=== PATIENT | male | born 1930 | race Caucasian/White ===

== ENCOUNTER 2016-06-14 10:40 | Emergency (ER) | payer OTHER ==
[~2016-06-14 10:40] MED LIST: ASPI81TA21 PO; CALC.25 PO; DOCU1CAP39 PO; DRIS50002 PO; ISOS60 PO; LABE200 PO; LISI5 PO; POLY119S PO; SPIR25 PO; TORS20TA PO; ULTR50TA PO; WARF2TAB PO
[2016-06-14 10:49] VITALS: BP 128/68; PULSE 80; RESP 17; TEMP 98.2; O2SAT 98
[2016-06-14] MEDS ORDERED: TETANUS/DIPHTHERIA TOXOID ADULT 0.5 ML VIAL IM ONE (14:15)
[2016-06-14 14:25] VITALS: BP 122/77; PULSE 78; RESP 18; TEMP 98.1; O2SAT 97
--- NOTE | 2016-06-14 14:28 | PD ---
HPI Chief Complaint: Skin Problem Time Seen by Provider: 14:20 Travel History International Travel<30 days: No Contact w/Intl Traveler<30days: No Traveled to known affect area: No History of Present Illness HPI 86-year-old male that presents to the ED for evaluation of fall. Patient came by ambulance for evaluation of this. Patient and who witnessed the fall report the patient had a fall from bed. Patient apparent rollover from bed and hit his head. He did not loss consciousness. Patient complaining of pain to his head initially but states that now he is pain-free. He does have a history of chronic pain secondary to arthritis and he usually is able to ambulate with a walker but apparently today during the night he had a bad dream and imaging rollover from bed. Patient does take Coumadin. [facility] for evaluation of the fall but the recommended that he comes here to get evaluated because he takes Coumadin. Per patient his last Coumadin level was checked 2 weeks ago and was 2.3. Patient complains of abrasions to the right arm as well as to the right ear. Patient states compliance with Coumadin which she takes for atrial fibrillation. He has a history of severe CHF. Also history CKD, heart disease and severe arthritis. Borderline diabetic with diet control. He denies any pain of any kind. Per patient was able to ambulate with his walker which is usual for him. No new deficits noted per . Patient talking and answering questions appropriately. Moving all extremities see no sign of acute distress. No back or neck pain reported. PFSH Past Medical History Hx Anticoagulant Therapy: Yes (coumadin) Atrial Fibrillation: Yes Blood Disorders: No Heart Rhythm Problems: Yes (A-Fib) Cancer: No Cardiac Catheterization: Yes (X 2) Cardiovascular Problems: Yes (CAD) Chest Pain: No Congestive Heart Failure: Yes Cerebrovascular Accident: Yes (2005 CVA) Coronary Artery Disease: Yes Diabetes: Yes Patient Takes Glucophage: No Diminished Hearing: Yes Endocrine: Yes Glaucoma: Yes Genitourinary: Yes (CKD) Hypertension: Yes Immune Disorder: No Neurologic: No Psychiatric: No Respiratory: No Integumentary: Yes Immunizations Current: Yes Tetanus Vaccination: < 5 Years Past Surgical History Tonsillectomy: Yes Social History Alcohol Use: No Tobacco Use: No Substance Use: No Allergies-Medications (Allergen,Severity, Reaction): Coded Allergies: HMG-CoA Reductase Inhibitors (Verified Allergy, Intermediate, LEG CRAMPS, 10/06/15) Minoxidil (Verified Allergy, Intermediate, Swelling, 10/06/15) Sulfa (Verified Allergy, Intermediate, Swelling, 10/06/15) Reported Meds & Prescriptions Reported Meds & Active Scripts Active Bactroban Topical (Mupirocin) 2% Oint 1 Appl TOPICAL BID 14 Days Reported Warfarin 2 Mg Tab 2 Mg PO HS Tramadol (Tramadol HCl) 50 Mg Tab 50-100 Mg PO Q6H PRN Torsemide 20 Mg Tab 20 Mg PO DAILY Aldactone (Spironolactone) 25 Mg Tab 25 Mg PO BID Miralax Powder (Polyethylene Glycol 3350 Powder) 17 Gm Powd 17 Gm PO DAILY PRN Mix and dissolve one measuring capful (17 grams) in water or juice. Labetalol (Labetalol HCl) 200 Mg Tab 200 Mg PO TID Tylenol (Acetaminophen) 325 Mg Tab 325 Mg PO TID Isosorbide Mononitrate ER (Isosorbide Mononitrate) 60 Mg Tab 60 Mg PO BID Drisdol (Ergocalciferol) 50,000 Unit Cap 50,000 Units PO WEEKLY Colace (Docusate Sodium) 100 Mg Cap 100 Mg PO HS Rocaltrol (Calcitriol) 0.25 Mcg Cap 0.25 Mcg PO DAILY Aspirin Adult Low Strength (Aspirin) 81 Mg Tabdr 81 Mg PO HS Review of Systems Except as stated in HPI: all other systems reviewed are Neg Physical Exam Narrative GENERAL: SKIN: Warm and dry. Patient has a small superficial skin avulsion to the right ear as well as to the posterior aspect of the ear. Both are less than half a centimeter in diameter. Patient does have a linear skin tear/avulsion which is very superficial on the right arm which is about 6 cm in length and less than half a centimeter in width. Some bleeding noted. No sign of foreign body or other deformity. Patient does have bruising noted on the most inferior aspect of the right ear. HEAD: Atraumatic. Normocephalic. EYES: Pupils equal and round 4 mm reactive to light and accommodation. No scleral icterus. No injection or drainage. ENT: No nasal bleeding or discharge. Mucous membranes pink and moist. Tongue is midline. No uvula deviation. NECK: Trachea midline. No JVD. CARDIOVASCULAR: Regular rate and rhythm. No murmurs, S3, S4. RESPIRATORY: No accessory muscle use. Clear to auscultation. Breath sounds equal bilaterally. GASTROINTESTINAL: Abdomen soft, non-tender, nondistended. Hepatic and splenic margins not palpable. MUSCULOSKELETAL: Extremities without clubbing, cyanosis, or edema. No obvious deformities. Full range of motion of the upper and lower extremities bilaterally. 2+ pulses bilaterally. No lumbar, thoracic, cervical spine tenderness to palpation. NEUROLOGICAL: Awake and alert. No obvious cranial nerve deficits. Motor grossly within normal limits. Five out of 5 muscle strength in the arms and legs. Normal speech. PSYCHIATRIC: Appropriate mood and affect; insight and judgment normal. Data Data Last Documented VS Vital Signs Date Time Temp Pulse Resp B/P Pulse Ox O2 Delivery O2 Flow Rate FiO2 06/14/16 10:49 98.2 80 17 128/68 98 Orders Complete Blood Count With Diff (06/14/16 14:02) Prothrombin Time / Inr (Pt) (06/14/16 14:02) Act Partial Throm Time (Ptt) (06/14/16 14:02) Chest, Single Ap (06/14/16 14:02) Ct Brain W/O Iv Contrast(Rout) (06/14/16 14:02) Iv Access Insert/Monitor (06/14/16 14:02) Ct Cerv Spine W/O Contrast (06/14/16 14:02) Wound Care (06/14/16 14:02) Tetanus/Diphtheria Tox Adult (Tetanus/Di (06/14/16 14:15) Labs Laboratory Tests Test 06/14/16 14:35 White Blood Count 8.0 TH/MM3 Red Blood Count 4.45 MIL/MM3 Hemoglobin 13.9 GM/DL Hematocrit 42.5 % Mean Corpuscular Volume 95.7 FL Mean Corpuscular Hemoglobin 31.4 PG Mean Corpuscular Hemoglobin 32.8 % Concent Red Cell Distribution Width 14.6 % Platelet Count 173 TH/MM3 Mean Platelet Volume 9.5 FL Neutrophils (%) (Auto) 73.8 % Lymphocytes (%) (Auto) 15.1 % Monocytes (%) (Auto) 8.0 % Eosinophils (%) (Auto) 2.6 % Basophils (%) (Auto) 0.5 % Neutrophils # (Auto) 5.9 TH/MM3 Lymphocytes # (Auto) 1.2 TH/MM3 Monocytes # (Auto) 0.6 TH/MM3 Eosinophils # (Auto) 0.2 TH/MM3 Basophils # (Auto) 0.0 TH/MM3 CBC Comment DIFF FINAL Differential Comment Prothrombin Time 25.8 SEC Prothromb Time International 2.3 RATIO Ratio Activated Partial 36.7 SEC Thromboplast Time MDM Medical Decision Making Medical Screen Exam Complete: Yes Emergency Medical Condition: Yes Medical Record Reviewed: Yes Interpretation(s) CBC Diagram 06/14/16 14:35 Coags elevated with INR of 2.3 CT head negative for acute disease CT cervical spine showed DJD but no acute disease Last Impressions Chest X-Ray 06/14/16 1402 Signed Impressions: Service Date/Time: Tuesday, June 14, 2016 14:13 - CONCLUSION: 1. No acute cardiopulmonary disease. 2. Cardiomegaly. 3. Chronic interstitial changes. Jairo Joseph Jr., MD Differential Diagnosis Fall versus head injury versus bleed versus ICH versus contusion versus abrasion versus laceration Narrative Course 86-year-old male that presents to the ED for evaluation of fall from bed. Patient was properly examined and was found to have signs and symptoms concerning for head bleed. [facility] At this time I recommend CBC, coags, CTs and wound care as well as tetanus booster as he is not sure of his last tetanus shot. He is in agreement with this plan. is present at the bedside and collaborates this story. This was a mechanical fall and no syncope. Labs and imaging ordered. Labs and imaging showed no sign of acute disease.. Patient was reassured. Patient was told that his Coumadin level is 2.3 which is stable for him. Recommendation is for wound care. Patient will be given a prescription for Bactroban. Told to follow with PCP. See ED for worsening symptoms. Change dressings daily. Ice or warm compresses as needed. Diagnosis Primary Impression: Head injury Qualified Code: S09.90XA - Head injury, initial encounter Additional Impressions: Skin abrasion Contusion Qualified Code: S00.431A - Contusion of right ear, initial encounter Patient Instructions: General Instructions Additional Instructions: Tylenol for pain as needed. Ice or warm compresses as needed. Wound changes at least once a day. Apply antibiotic ointment as prescribed. See ED for any worsening symptoms. Follow up with PCP. Med/Other Pt SpecificInfo: Prescription(s) given Scripts Mupirocin Topical (Bactroban Topical)2% Oint1 Appl TOPICAL BID 14 Days Prov:Paco Owen MD 06/14/16 Disposition: 01 DISCHARGE HOME Condition: Stable Wesley Wiley Jun 14, 2016 14:28
[2016-06-14] MEDS ORDERED: WARF4TAB51 PO (14:37)
[2016-06-14] MEDS ORDERED: ASPI1TAB91 PO (14:37)
[2016-06-14] MEDS ORDERED: ISOS60TA PO (14:37)
[2016-06-14] MEDS ORDERED: TYLE325T PO (14:37)
[2016-06-14] MEDS ORDERED: TORS20TA PO (14:37)
[2016-06-14] MEDS ORDERED: CALC.25 PO (14:37)
[2016-06-14] MEDS ORDERED: DRIS50002 PO (14:37)
[2016-06-14] MEDS ORDERED: MIRA33504 PO (14:37)
[2016-06-14] MEDS ORDERED: SPIR25 PO (14:37)
[2016-06-14] MEDS ORDERED: TRAM50TA PO (14:37)
[2016-06-14] MEDS ORDERED: COLA100C3 PO (14:37)
[2016-06-14] MEDS ORDERED: LABE200T2 PO (14:37)
[2016-06-14 15:03] LABS: AUTOMATED NEUTROPHIL # 5.9 TH/MM3 (1.8-7.7); BASOPHIL % 0.5 % (0.0-2.0); EOSINOPHIL # 0.2 TH/MM3 (0-0.4); EOSINOPHIL % 2.6 % (0.0-4.0); HEMATOCRIT 42.5 % (39.0-51.0); HEMO FLAGS DIFF FINAL; LYMPH % 15.1 % (9.0-44.0); LYMPHOCYTE # 1.2 TH/MM3 (1.0-4.8); MEAN CELL VOLUME 95.7 FL (80.0-100.0); MEAN CORPUSCULAR HEMOGLOBIN 31.4 PG (27.0-34.0); MEAN CORPUSCULAR HGB CONC 32.8 % (32.0-36.0); NEUT % 73.8 % (16.0-70.0); PLATELET COUNT 173 TH/MM3 (150-450); RED BLOOD COUNT 4.45 MIL/MM3 (4.50-5.90); RED CELL DISTRIBUTION WIDTH 14.6 % (11.6-17.2)
[2016-06-14 15:18] LABS: APTT (PATIENT) 36.7 SEC (24.3-30.1); INTERNATIONAL NORMALIZED RATIO 2.3 RATIO; PROTHROMBIN TIME - PATIENT 25.8 SEC (9.8-11.6)
[2016-06-14] MEDS ORDERED: BACT2OIN TOPICAL (15:21)
--- NOTE | 2016-06-14 15:52 | RADRPT ---
EXAM DATE/TIME: 06/14/2016 14:13 [facility] COMPARISON: CHEST SINGLE AP, October 06, 2015, 15:24. INDICATIONS : Patient fell this morning. MEDICAL HISTORY : Congestive heart failure. SURGICAL HISTORY : None. ENCOUNTER: Initial ACUITY: 1 day PAIN SCORE: 0/10 LOCATION: Bilateral chest FINDINGS: A single portable frontal view the chest shows mild cardiomegaly. Mild chronic interstitial changes. No acute infiltrate or effusion. The scoliotic and degenerative thoracic spine. CONCLUSION: 1. No acute cardiopulmonary disease. 2. Cardiomegaly. 3. Chronic interstitial changes. Jairo Joseph Jr., MD on June 14, 2016 at 15:48 Board Certified Radiologist. This report was verified electronically.
--- NOTE | 2016-06-14 16:05 | RADRPT ---
EXAM DATE/TIME: 06/14/2016 14:54 [facility] COMPARISON: No previous studies available for comparison. INDICATIONS : Fell out of bed today hit head on dresser laceration right side of head and right arm RADIATION DOSE: 36.84 CTDIvol (mGy) MEDICAL HISTORY : Cardiovascular disease. Diabetes mellitus type 2. Cerebrovascular disease. SURGICAL HISTORY : Tonsillectomy. ENCOUNTER: Initial ACUITY: 1 day PAIN SCALE: 5/10 LOCATION: cranial TECHNIQUE: Multiple contiguous axial images were obtained of the head. Using automated exposure control and adj ustment of the mA and/or kV according to patient size, radiation dose was kept as low as reasonably a chievable to obtain optimal diagnostic quality images. FINDINGS: CEREBRUM: The ventricles are normal for age. No evidence of midline shift, mass lesion, hemorrhage or acute in farction. No extra-axial fluid collections are seen. POSTERIOR FOSSA: The cerebellum and brainstem are intact. The 4th ventricle is midline. The cerebellopontine angle i s unremarkable. EXTRACRANIAL: The visualized portion of the orbits is intact. SKULL: The calvaria is intact. No evidence of skull fracture. CONCLUSION: No acute intracranial findings. Shay Cervantes MD on June 14, 2016 at 15:55 Board Certified Radiologist. This report was verified electronically.
--- NOTE | 2016-06-14 16:09 | RADRPT ---
EXAM DATE/TIME: 06/14/2016 14:54 [facility] COMPARISON: No previous studies available for comparison. INDICATIONS : Fell off bed hit head on dresser laceration to right side of head and rt arm RADIATION DOSE: 21.20 CTDIvol (mGy) MEDICAL HISTORY : Hypertension. Diabetes mellitus type 2. Cerebrovascular disease. SURGICAL HISTORY : None. ENCOUNTER: Initial ACUITY: 1 day PAIN SCALE: 5/10 LOCATION: neck TECHNIQUE: Volumetric scanning of the cervical spine was performed. Multiplanar reconstructions in the sagittal, coronal and oblique axial planes were performed. Using automated exposure control and adjustment o f the mA and/or kV according to patient size, radiation dose was kept as low as reasonably achievable to obtain optimal diagnostic quality images. FINDINGS: VERTEBRAE: Normal vertebral body height. ALIGNMENT: 2 mm anterolisthesis C3 on C4. 2 mm anterolisthesis C5 on C6. C2-C3: Bilateral facet arthrosis. No evidence of focal disc protrusion. Central canal normal diameter. Neura l foraminal diameters within normal limits. C3-C4: Severe right-sided facet arthrosis. Broad-based disc osteophyte complex. Moderate right neural forami nal narrowing. Central canal diameter within normal limits. C4-C5: Moderate severity lateral facet arthrosis left greater than right. Broad-based disc osteophyte comple x. Mild central canal narrowing. Mild left neural foraminal narrowing. C5-C6: Broad-based disc osteophyte complex and right greater than left facet arthrosis. Mild central canal n arrowing. Mild right neural foraminal narrowing. C6-C7: Broad-based disc osteophyte complex. Mild central canal narrowing. C7-T1: Bilateral facet arthrosis. Central canal diameter within normal limits. CONCLUSION: No evidence of fracture. Multilevel degenerative findings. Shay Cervantes MD on June 14, 2016 at 16:03 Board Certified Radiologist. This report was verified electronically.
== END 2016-06-14 17:05 | disposition home or self-care (01) ==
LOC: NEPD 10:40
DX: S09.90XA Unspecified injury of head, initial encounter (principal); S40.811A Abrasion of right upper arm, initial encounter; S00.411A Abrasion of right ear, initial encounter; S00.431A Contusion of right ear, initial encounter; I48.91 Unspecified atrial fibrillation; I12.9 Hypertensive chronic kidney disease with stage 1 through stage 4 chronic kidney disease, or unspecified chronic kidney disease; N18.9 Chronic kidney disease, unspecified; R73.03 Prediabetes; H91.90 Unspecified hearing loss, unspecified ear; W06.XXXA Fall from bed, initial encounter; Z79.01 Long term (current) use of anticoagulants; Z86.79 Personal history of other diseases of the circulatory system; Z87.39 Personal history of other diseases of the musculoskeletal system and connective tissue; Z86.69 Personal history of other diseases of the nervous system and sense organs; Z87.2 Personal history of diseases of the skin and subcutaneous tissue
CPT/HCPCS: 70450; 71010; 72125; 85025; 85610; 85730; 90471